=== PATIENT | female | born 1965 | race Caucasian/White ===

== ENCOUNTER 2025-01-30 23:01 | Emergency (ER) | payer MEDICARE ==
[~2025-01-30] VITALS: Ht 170.2 cm; Wt 84.0 kg
[2025-01-30 23:06] VITALS: BP 162/92; PULSE 96; RESP 18; TEMP 36.6; O2SAT 96
== END 2025-01-31 00:27 | disposition left against medical advice (07) ==
LOC: ER 23:01
DX: T40.1X1A Poisoning by heroin, accidental (unintentional), initial encounter (principal); Y92.89 Other specified places as the place of occurrence of the external cause
CPT/HCPCS: 99283